=== PATIENT | female | born 1945 | race Caucasian/White ===

== ENCOUNTER 2024-03-24 06:26 | Day surgery (SDC) | payer MEDICARE, BC, SELFPAY ==
[2024-03-24 08:09] VITALS: BMI 37.7
[2024-03-24 08:17] LABS: Glucose - Point of Care 127 mg/dl (70-99)
[2024-03-24 08:45] VITALS: BP 165/76; BMI 37.7
[2024-03-24 09:42] VITALS: BP 140/94
[2024-03-24 09:45] VITALS: BP 128/68
[2024-03-24 09:55] LABS: Glucose - Point of Care 108 mg/dl (70-99)
[2024-03-24 10:00] VITALS: BP 131/60
== END 2024-03-24 10:15 | disposition home or self-care (01) ==
LOC: GI 06:26
PROVIDERS: ATTENDING PHYSICIAN Internal Medicine Gastroenterology
DX: K51.511 Left sided colitis with rectal bleeding (principal); D12.0 Benign neoplasm of cecum; D12.2 Benign neoplasm of ascending colon; D12.3 Benign neoplasm of transverse colon; K64.8 Other hemorrhoids
CPT/HCPCS: 45385; 45380; 88305; 82962